=== PATIENT | male | born 2000 | race African-American/Black ===

== ENCOUNTER 2025-05-26 02:01 | Emergency (ER) | payer BC ==
[~2025-05-26] VITALS: Ht 175.2 cm; Wt 123.4 kg
[2025-05-26 02:33] LABS: BASO # 0.0 10*3/uL (0.0-0.1); BASO % 0.4 % (0.0-1.0); BILIRUBIN Negative (Negative); BLOOD Trace-Lysed (Negative); CLARITY Clear (Clear); COLOR Yellow (Yellow); EOS # 0.1 10*3/uL (0.0-0.4); EOS % 1.0 % (1.0-4.0); KETONE Trace (Negative); LEUKO ESTERASE Negative (Negative); MEAN CELL VOLUME 84.3 fl (80.0-94.0); MEAN CORPUSCULAR HGB 28.3 pg (27.0-31.0); MEAN PLATELET VOLUME 10.6 fl (9.6-12.3); MONO # 0.6 10*3/uL (0.1-1.0); MONO % 8.3 % (3.0-9.0); NEUT # 4.4 10*3/uL (2.3-7.9); NEUT % 62.9 % (47.0-73.0); NITRITE Negative (Negative); NUCLEATED RED BLOOD CELL 0.0 % (0.0-0.0); NUCLEATED RED BLOOD CELL 0.0 10*3/uL (0.0-0.0); PH 5.5 (4.5-8.0); PLATELET COUNT AUTOMATED 222 10*3/uL (130-400); RED CELL DISTRI WIDTH 12.8 % (0-14.5); SPECIFIC GRAVITY >= 1.030 (1.001-1.030); UROBILINOGEN 1.0 E.U./dl (0.0-1.0)
[2025-05-26 02:39] LABS: BACTERIA TRACE; MUCOUS 1+
[2025-05-26 02:54] LABS: BUN 9 mg/dl (9-23); CPK 274 U/L (34-171)
== END 2025-05-26 07:39 | disposition home or self-care (01) ==
LOC: ED 02:01
PROVIDERS: Internal Medicine
DX: R31.9 Hematuria, unspecified (principal); R74.8 Abnormal levels of other serum enzymes

== ENCOUNTER 2025-08-14 14:25 | Emergency (ER) | payer BC ==
[~2025-08-14] VITALS: Wt 123.4 kg
== END 2025-08-14 14:34 | disposition home or self-care (01) ==
LOC: ED 14:25
DX: Z04.6 Encounter for general psychiatric examination, requested by authority (principal)

== ENCOUNTER 2025-08-15 20:09 | Emergency (ER) | payer BC ==
[~2025-08-15] VITALS: Wt 117.9 kg
[2025-08-15] MEDS ORDERED: AZITHROMYCIN 250 MG TAB PO ONE (20:40)
[2025-08-15 21:16] LABS: BILIRUBIN Negative (Negative); BLOOD Trace-Lysed (Negative); CLARITY Clear (Clear); COLOR Yellow (Yellow); KETONE Negative (Negative); LEUKO ESTERASE Negative (Negative); NITRITE Negative (Negative); PH 5.5 (4.5-8.0); SPECIFIC GRAVITY >= 1.030 (1.001-1.030); UROBILINOGEN 1.0 E.U./dl (0.0-1.0)
[2025-08-15 21:29] LABS: BACTERIA TRACE; MUCOUS 1+
== END 2025-08-15 21:22 | disposition home or self-care (01) ==
LOC: ED 20:09
PROVIDERS: Emergency Medicine
DX: Z20.2 Contact with and (suspected) exposure to infections with a predominantly sexual mode of transmission (principal)

== ENCOUNTER 2025-09-19 02:22 | Emergency (ER) | payer BC ==
[~2025-09-19] VITALS: Ht 177.8 cm; Wt 117.9 kg
[2025-09-19 03:53] LABS: BILIRUBIN Negative (Negative); BLOOD Negative (Negative); CLARITY Clear (Clear); COLOR Yellow (Yellow); KETONE Trace (Negative); LEUKO ESTERASE 1+ (Negative); NITRITE Negative (Negative); PH 6.0 (4.5-8.0); SPECIFIC GRAVITY >= 1.030 (1.001-1.030); UROBILINOGEN 1.0 E.U./dl (0.0-1.0)
[2025-09-19 04:07] LABS: BACTERIA 1+; RBC 0-2 rbc/hpf (0-2); WBC 31-40 wbc/hpf (0-5)
[2025-09-19 04:08] LABS: MUCOUS 3+
[2025-09-19] MEDS ORDERED: CIPRO500 MG PO (04:52)
[2025-09-19] MEDS ORDERED: Lidocaine Hydrochloride 5 ML AMP IM ONE (04:55)
[2025-09-19] MEDS ORDERED: AZITHROMYCIN 250 MG TAB PO ONE (05:00)
== END 2025-09-19 05:10 | disposition home or self-care (01) ==
LOC: ED 02:22
PROVIDERS: Emergency Medicine
DX: N39.0 Urinary tract infection, site not specified (principal); J40 Bronchitis, not specified as acute or chronic; Z20.2 Contact with and (suspected) exposure to infections with a predominantly sexual mode of transmission; F12.90 Cannabis use, unspecified, uncomplicated